=== PATIENT | male | born 1955 | race Two or more races ===

== ENCOUNTER 2018-11-01 10:08 | Emergency (ER) | payer MEDICAID ==
[~2018-11-01] VITALS: Ht 162.6 cm; Wt 79.4 kg
[2018-11-01 10:15] VITALS: BP 149/71
--- NOTE | 2018-11-01 10:15 | NUR ---
ED Nurse Note: BROUGHT IN BY PT'S DUE ABDOMINAL PAIN WITH N/V/D AND BLACK STOOL X 1 WEEK. PT STATES THAT HE WAS [facility] [place] AND REMOVED FLUID FROM LIVER. A/OX4. NO S/S OF DISTRESS AT THIS TIME.
[2018-11-01] MEDS ORDERED: NKM (10:17)
[2018-11-01] MEDS ORDERED: Pantoprazole Inj IV ONE (10:30)
--- NOTE | 2018-11-01 10:41 | Emergency Room Report ---
History of Present Illness General Chief Complaint: Abdominal Pain Source: Patient Present Illness HPI Is a 63-year-old male brought in by family member after increased abdominal distention as well as rectal bleeding. Patient was noted to have increased dark stools here. He had prior history of cirrhosis secondary to alcohol. Patient states he has not had any alcohol for approximate 1 month. He had not been vomiting. He had been having some increased dark stools. He had a recent hospitalization at [facility].Patient had recent paracentesis but had not had any diuretic use subsequently. Allergies: Coded Allergies: No Known Allergies (Unverified , 11/01/18) Patient History Past Medical History: see triage record Reviewed Nursing Documentation: PMH: Agreed; PSxH: Agreed Review of Systems All Other Systems: negative except mentioned in HPI Physical Exam Vital Signs Date Time Temp Pulse Resp B/P (MAP) Pulse Ox O2 Delivery O2 Flow Rate FiO2 11/01/18 10:10 98.4 111 19 159/79 95 Room Air Sp02 EP Interpretation: reviewed, normal General Appearance: normal inspection, well appearing, no apparent distress, alert, Chronically Ill Head: atraumatic ENT: normal ENT inspection, hearing grossly normal, normal voice Neck: normal inspection, full range of motion, supple, no bony tend Respiratory: normal inspection, lungs clear, normal breath sounds, no respiratory distress, no retraction, no wheezing Cardiovascular #1: regular rate, rhythm, no edema Gastrointestinal: normal inspection, normal bowel sounds, non tender, soft, no guarding, no hernia, distended Genitourinary: no CVA tenderness Musculoskeletal: normal inspection, back normal, normal range of motion Neurologic: normal inspection, alert, oriented x3, responsive, hand mixer III-XII nml as tested, speech normal Psychiatric: normal inspection, judgement/insight normal, mood/affect normal Skin: normal inspection, normal color, no rash Medical Decision Making Diagnostic Impression: Primary Impression: Cirrhosis ER Course Patient is a 63-year-old male presented after increased abdominal distention. Differential diagnosis include was not limited to cirrhosis, ascites, bowel obstruction, spontaneous bacterial peritonitis, hepatic encephalopathy among others. Because of complexity of patient's case laboratory testing and imaging studies were ordered. Laboratory testing was notable for elevation of his bilirubin however this was improved from recent laboratory testing. Patient was noted to have stable hemoglobin. Patient does not appear to have any tense ascites at this time. Patient was given prescription for acid blockers as well as oral diuretics. He was advised low-salt diet. Patient advised to return if he began have any increased bleeding or confusion. He was advised to follow-up with primary care physician for recheck. Labs Test 11/01/18 10:30 White Blood Count 5.6 K/UL (4.8-10.8) Red Blood Count 3.00 M/UL (4.70-6.10) Hemoglobin 9.6 G/DL (14.2-18.0) Hematocrit 30.0 % (42.0-52.0) Mean Corpuscular Volume 100 FL (80-99) Mean Corpuscular Hemoglobin 31.9 PG (27.0-31.0) Mean Corpuscular Hemoglobin Concent 31.9 G/DL (32.0-36.0) Red Cell Distribution Width 15.5 % (11.6-14.8) Platelet Count 80 K/UL (150-450) Mean Platelet Volume 9.3 FL (6.5-10.1) Neutrophils (%) (Auto) % (45.0-75.0) Lymphocytes (%) (Auto) % (20.0-45.0) Monocytes (%) (Auto) % (1.0-10.0) Eosinophils (%) (Auto) % (0.0-3.0) Basophils (%) (Auto) % (0.0-2.0) Differential Total Cells Counted 100 Neutrophils % (Manual) 79 % (45-75) Lymphocytes % (Manual) 7 % (20-45) Monocytes % (Manual) 14 % (1-10) Eosinophils % (Manual) 0 % (0-3) Basophils % (Manual) 0 % (0-2) Band Neutrophils 0 % (0-8) Platelet Estimate Decreased Platelet Morphology Normal Anisocytosis 1+ Macrocytosis 1+ Prothrombin Time 13.5 SEC (9.30-11.50) Prothromb Time International Ratio 1.3 (0.9-1.1) Activated Partial Thromboplast Time 31 SEC (23-33) Urine Color Yellow Urine Appearance Clear Urine pH 6 (4.5-8.0) Urine Specific [place] 1.015 (1.005-1.035) Urine Protein Negative (NEGATIVE) Urine Glucose (UA) Negative (NEGATIVE) Urine Ketones 1+ (NEGATIVE) Urine Blood 1+ (NEGATIVE) Urine Nitrite Negative (NEGATIVE) Urine Bilirubin Negative (NEGATIVE) Urine Urobilinogen Normal MG/DL (0.0-1.0) Urine Leukocyte Esterase Negative (NEGATIVE) Urine RBC 0-2 /HPF (0 - 0) Urine WBC 0 /HPF (0 - 0) Urine Squamous Epithelial Cells Occasional /LPF Urine Bacteria None /HPF (NONE) Sodium Level 133 MMOL/L (136-145) Potassium Level 3.9 MMOL/L (3.5-5.1) Chloride Level 98 MMOL/L (98-107) Carbon Dioxide Level 25 MMOL/L (21-32) Anion Gap 10 mmol/L (5-15) Blood Urea Nitrogen 9 mg/dL (7-18) Creatinine 0.8 MG/DL (0.55-1.30) Estimat Glomerular Filtration Rate > 60 mL/min (>60) Glucose Level 123 MG/DL (74-106) Calcium Level 8.5 MG/DL (8.5-10.1) Total Bilirubin 2.9 MG/DL (0.2-1.0) Direct Bilirubin 1.9 MG/DL (0.0-0.3) Aspartate Amino Transf (AST/SGOT) 93 U/L (15-37) Alanine Aminotransferase (ALT/SGPT) 50 U/L (12-78) Alkaline Phosphatase 174 U/L (46-116) Total Protein 7.3 G/DL (6.4-8.2) Albumin 2.6 G/DL (3.4-5.0) Globulin 4.7 g/dL Albumin/Globulin Ratio 0.6 (1.0-2.7) Lipase 340 U/L (73-393) Last Vital Signs Date Time Temp Pulse Resp B/P (MAP) Pulse Ox O2 Delivery O2 Flow Rate FiO2 11/01/18 10:10 98.4 111 19 159/79 95 Room Air Status: improved Disposition: HOME, SELF-CARE Condition: Stable Scripts Lactulose (LACTULOSE*) 20 Gm/30 Ml Solution 30 ML ORAL THREE TIMES A DAY, #120 ML 0 Refills Prov: Miki Bah MD 11/01/18 Spironolactone* (SPIRONOLACTONE*) 100 Mg Tablet 100 MG ORAL DAILY, #30 TAB Prov: Miki Bah MD 11/01/18 Omeprazole Magnesium (PRILOSEC OTC) 20 Mg Tablet. 20 MG ORAL DAILY, #30 TAB Prov: Miki Bah MD 11/01/18 Miki Bah MD Nov 01, 2018 10:41
[2018-11-01 10:58] LABS: HEMOGLOBIN 9.6 G/DL (14.2-18.0); MEAN CORPUSCULAR VOLUME 100 FL (80-99); PLATELET COUNT 80 K/UL (150-450); RED CELL DISTRIBUTION WIDTH 15.5 % (11.6-14.8); WHITE BLOOD COUNT 5.6 K/UL (4.8-10.8)
[2018-11-01 11:02] LABS: APPEARANCE,URINE CLEAR; BILIRUBIN, URINE NEGATIVE (NEGATIVE); GLUCOSE, URINE (UA) NEGATIVE (NEGATIVE); KETONES,URINE 1+ (NEGATIVE); LEUKOCYTE ESTERASE ,URINE NEGATIVE (NEGATIVE); NITRITE,URINE NEGATIVE (NEGATIVE); PH,URINE 6 (4.5-8.0); PROTEIN,URINE NEGATIVE (NEGATIVE); UROBILINOGEN,URINE NORMAL MG/DL (0.0-1.0)
[2018-11-01 11:05] LABS: COLOR,URINE YELLOW
[2018-11-01 11:08] LABS: INR 1.3 (0.9-1.1)
[2018-11-01 11:27] LABS: ANION GAP 10 mmol/L (5-15); BLOOD UREA NITROGEN 9 mg/dL (7-18); CALCIUM 8.5 MG/DL (8.5-10.1); CARBON DIOXIDE 25 MMOL/L (21-32); CHLORIDE 98 MMOL/L (98-107); CREATININE 0.8 MG/DL (0.55-1.30); POTASSIUM 3.9 MMOL/L (3.5-5.1); SODIUM 133 MMOL/L (136-145)
[2018-11-01 11:37] LABS: ALANINE AMINOTRANSFERASE 50 U/L (12-78); ALBUMIN 2.6 G/DL (3.4-5.0); ALBUMIN/GLOBULIN RATIO 0.6 (1.0-2.7); ALKALINE PHOSPHATASE 174 U/L (46-116); ASPARTATE AMINO TRANSFERASE 93 U/L (15-37); BILIRUBIN,TOTAL 2.9 MG/DL (0.2-1.0)
[2018-11-01 11:38] LABS: BILIRUBIN,DIRECT 1.9 MG/DL (0.0-0.3)
[2018-11-01 12:38] VITALS: BP 136/60
[2018-11-01] MEDS ORDERED: SPIRONOLACTONE100 MG ORAL (13:41)
[2018-11-01] MEDS ORDERED: PRILOSEC OTC20 MG ORAL (13:41)
[2018-11-01] MEDS ORDERED: LACTULOSE20 GM/301 ORAL (13:41)
[2018-11-01 13:53] VITALS: BP 131/68
[2018-11-01 13:54] VITALS: BP 131/68
--- NOTE | 2018-11-01 13:55 | NUR ---
ED Nurse Note: Pt cleared by health care Provider for discharge. DC instructions/prescription was given and explained to pt and verbalized understanding of teachings. All medical deviecs such as ID band and IV removed. Pt is AAO x4, ambulatory and left with all personal belongings.
== END 2018-11-01 13:55 | disposition home or self-care (01) ==
LOC: EMR 12:03
DX: K74.60 Unspecified cirrhosis of liver (principal); K62.5 Hemorrhage of anus and rectum
CPT/HCPCS: 36415; 80053; 81003; 82248; 83690; 85007; 85025; 85610; 85730; 96374; 96375; 99284; C9113; J2405